=== PATIENT | female | born 1985 | race Caucasian/White ===

== ENCOUNTER → 2023-12-22 09:55 | Outpatient (BNVA) | payer MEDICARE, SELFPAY | PROVIDERS: Referring Provider Family Medicine; Visit Provider Internal Medicine Rheumatology | DX: Z79.899 Other long term (current) drug therapy (principal); L40.50 Arthropathic psoriasis, unspecified; M45.6 Ankylosing spondylitis lumbar region; Z11.1 Encounter for screening for respiratory tuberculosis; M79.671 Pain in right foot; M79.672 Pain in left foot; M54.50 Low back pain, unspecified; M79.641 Pain in right hand; M79.642 Pain in left hand | CPT/HCPCS: 36415; 72040; 72100; 73130; 73630; 86200; 86431; 86480; 86704; 86803; 86812; 87340; 99205 ==

== ENCOUNTER 2024-03-02 12:31 | Outpatient (CLI) | payer MEDICARE, SELFPAY ==
[2024-03-02 13:00] LABS: Basophils % 0.4 %; Eosinophils # 0.2 10^3/uL (0.0-0.8); Eosinophils % 1.9 %; Hematocrit 42.5 % (36-47); Lymphocytes # 2.7 10^3/uL (0.8-4.8); Lymphocytes % 33.5 %; Mean Corpuscular HGB Conc 33.2 g/dL (30-55); Mean Corpuscular Hemoglobin 31.3 pg (27-33); Mean Corpuscular Volume 94.2 fl (85-98); Mean Platelet Volume 10.2 fL (7.4-10.4); Monocytes # 0.4 10^3/uL (0.2-0.9); Monocytes % 4.6 %; Neutrophils # 4.73 10^3/uL (1.8-7.7); Neutrophils % 59.2 %; Nucleated Red Blood Cells % 0 %; Platelet Count 210 10^3/cmm (157-399); Red Blood Count 4.51 10^6/uL (3.85-5.65); Red Cell Distribution Width 12.5 % (12.1-15.1); White Blood Count 7.98 10^3/uL (3.29-11.43)
[2024-03-02 13:27] LABS: Erythrocyte Sedimentation Rate 28 mm/hr (0-15)
[2024-03-02 13:32] LABS: Alanine Aminotransferase 49 U/L (0-33); Albumin Level 4.3 g/dL (3.5-5.2); Alkaline Phosphatase 82 U/L (35-105); Aspartate Amino Transferase 47 U/L (0-32); C Reactive Protein 6.3 mg/L (0.0-4.9); Globulin 3.9 g/dL (1.3-4.6); Glomerular Filtration Rate 80.3 mL/min (90-130); Total Bilirubin 0.9 mg/dL (0.15-1.2); Total Protein 8.2 g/dL (6.6-8.7)
== END 2024-03-02 12:32 | disposition home or self-care (01) ==
LOC: LAB 12:32
PROVIDERS: PCP Family Medicine; Visit Provider Internal Medicine Rheumatology
DX: Z79.899 Other long term (current) drug therapy (principal); L40.50 Arthropathic psoriasis, unspecified
CPT/HCPCS: 36415; 80076; 82565; 85025; 85651; 86140

== ENCOUNTER → 2024-05-04 10:25 | Outpatient (BNVA) | payer MEDICARE, SELFPAY | PROVIDERS: PCP Family Medicine; Visit Provider Internal Medicine Rheumatology | DX: L40.50 Arthropathic psoriasis, unspecified (principal); Z79.899 Other long term (current) drug therapy; L71.9 Rosacea, unspecified; L40.0 Psoriasis vulgaris; L73.2 Hidradenitis suppurativa | CPT/HCPCS: 99214 ==

== ENCOUNTER 2024-05-26 11:34 | Oncology outpatient (recurring) (ONCR) | payer MEDICARE, SELFPAY | END 2024-05-30 23:59 | disposition home or self-care (01) | PROVIDERS: PCP Family Medicine; Visit Provider Internal Medicine Rheumatology | DX: Z53.9 Procedure and treatment not carried out, unspecified reason (principal) ==

== ENCOUNTER 2024-06-16 11:00 | Oncology outpatient (recurring) (ONCR) | payer MEDICARE, SELFPAY ==
[2024-06-02] VITALS (8 sets, daily range): BP systolic 112–151; BP diastolic 60–84; PULSE 92–112; RESP 16; TEMP 36–36.9; O2SAT 95–98
[2024-06-02] MEDS: acetaminophen 325 mg Tablet 650 MG PO (11:30)
[2024-06-02] MEDS: sodium chloride 0.9% 250 ML 75 ML IV (11:31)
[2024-06-02] MEDS: diphenhydrAMINE 50 mg/mL SDV 1mL 25 MG IVP (11:32)
[2024-06-02] MEDS: methylPREDNISolone sod succ 40 mg/mL INJ IVP (11:32)
[2024-06-02] MEDS: infliximab-abda 700 MG in sodium chloride 0.9% 250 ML 10 MG IV (12:19)
[2024-06-16] MEDS: acetaminophen 325 mg Tablet 650 MG PO (11:50)
[2024-06-16] MEDS: diphenhydrAMINE 50 mg/mL SDV 1mL 25 MG IVP (11:53)
[2024-06-16] MEDS: methylPREDNISolone sod succ 40 mg/mL INJ IVP (12:01)
[2024-06-16 12:25] VITALS: BP 135/78; PULSE 100; RESP 16; TEMP 36.7; O2SAT 96
[2024-06-16] MEDS: infliximab-abda 700 MG in sodium chloride 0.9% 250 ML 10 MG IV (12:25)
[2024-06-16 12:40] VITALS: BP 124/74; PULSE 102; RESP 16; TEMP 36.1; O2SAT 97
[2024-06-16 12:55] VITALS: BP 125/71; PULSE 103; RESP 16; TEMP 36.5; O2SAT 95
[2024-06-16 13:10] VITALS: BP 124/70; PULSE 110; RESP 16; TEMP 36.6; O2SAT 96
[2024-06-16 13:50] VITALS: BP 121/64; PULSE 107; RESP 16; TEMP 36.5; O2SAT 95
[2024-06-16 15:04] LABS: Basophils % 0.3 %; Eosinophils # 0.1 10^3/uL (0.0-0.8); Eosinophils % 0.5 %; Hematocrit 42.1 % (36-47); Lymphocytes # 1.2 10^3/uL (0.8-4.8); Lymphocytes % 12.5 %; Mean Corpuscular HGB Conc 33.5 g/dL (30-55); Mean Corpuscular Volume 92.5 fl (85-98); Mean Platelet Volume 10.5 fL (7.4-10.4); Monocytes # 0.3 10^3/uL (0.2-0.9); Monocytes % 2.9 %; Neutrophils # 8.23 10^3/uL (1.8-7.7); Neutrophils % 83.5 %; Nucleated Red Blood Cells % 0 %; Platelet Count 218 10^3/cmm (157-399); Red Blood Count 4.55 10^6/uL (3.85-5.65); Red Cell Distribution Width 12.6 % (12.1-15.1); White Blood Count 9.86 10^3/uL (3.29-11.43)
[2024-06-16 15:10] LABS: Erythrocyte Sedimentation Rate 36 mm/hr (0-15)
[2024-06-16 15:14] VITALS: BP 128/76; PULSE 104; TEMP 36.4; O2SAT 97
[2024-06-16 15:23] LABS: Albumin Level 4.2 g/dL (3.5-5.2); Alkaline Phosphatase 75 U/L (35-105); Aspartate Amino Transferase 45 U/L (0-32); C Reactive Protein 4.5 mg/L (0.0-4.9); Globulin 3.3 g/dL (1.3-4.6); Glomerular Filtration Rate 80.3 mL/min (90-130); Total Bilirubin 0.6 mg/dL (0.15-1.2); Total Protein 7.5 g/dL (6.6-8.7)
[2024-06-16 16:53] LABS: Alanine Aminotransferase 51 U/L (0-33)
== END 2024-06-16 23:59 | disposition home or self-care (01) ==
PROVIDERS: PCP Family Medicine; Visit Provider Internal Medicine Rheumatology
DX: L40.50 Arthropathic psoriasis, unspecified; Z79.899 Other long term (current) drug therapy; Z53.9 Procedure and treatment not carried out, unspecified reason
CPT/HCPCS: 80076; 82565; 85025; 85651; 86140; 96375; 96413; 96415; A4222; J1200; J2919; J7050; Q5104

== ENCOUNTER 2024-07-26 09:53 | Oncology outpatient (recurring) (ONCR) | payer MEDICARE, SELFPAY ==
[2024-07-26] VITALS (8 sets, daily range): BP systolic 97–137; BP diastolic 53–84; PULSE 96–109; RESP 16–17; TEMP 35.7–36.6; O2SAT 93–96
[2024-07-26] MEDS: acetaminophen 325 mg Tablet 650 MG PO (11:10)
[2024-07-26] MEDS: methylPREDNISolone sod succ 40 mg/mL INJ IVP (11:14)
[2024-07-26] MEDS: diphenhydrAMINE 50 mg/mL SDV 1mL 25 MG IVP (11:16)
[2024-07-26] MEDS: infliximab-abda 700 MG in sodium chloride 0.9% 250 ML 10 MG IV (12:19)
== END 2024-07-30 23:59 | disposition home or self-care (01) ==
PROVIDERS: PCP Family Medicine; Visit Provider Internal Medicine Rheumatology
DX: L40.50 Arthropathic psoriasis, unspecified (principal); Z79.899 Other long term (current) drug therapy
CPT/HCPCS: 96375; 96413; 96415; A4222; J1200; J2919; J7050; Q5104

== ENCOUNTER → 2024-09-07 11:04 | Outpatient (BNVA) | payer MEDICARE, SELFPAY | PROVIDERS: PCP Family Medicine; Visit Provider Internal Medicine Rheumatology | DX: L71.9 Rosacea, unspecified (principal); L40.50 Arthropathic psoriasis, unspecified; L40.0 Psoriasis vulgaris; Z79.899 Other long term (current) drug therapy; L73.2 Hidradenitis suppurativa | CPT/HCPCS: 99214 ==